=== PATIENT | male | born 1950 | race Caucasian/White ===

== ENCOUNTER 2024-07-15 09:41 | Emergency (ER) | payer OTHER ==
[2024-07-15 09:54] VITALS: BP 136/77; PULSE 74; RESP 18; TEMP 98.6; BMI 20.8
== END 2024-07-15 11:18 | disposition home or self-care (01) ==
LOC: FER 09:41
DX: R04.2 Hemoptysis (principal); R05.2 Subacute cough
CPT/HCPCS: 71046-TC-FY; 99283-25